=== PATIENT | male | born 2000 | race Caucasian/White ===

== ENCOUNTER 2021-06-23 05:08 | Emergency (ER) | payer MEDICAID ==
[~2021-06-23] VITALS: Ht 177.8 cm; Wt 65.9 kg
[2021-06-23 05:10] VITALS: BP 125/82
== END 2021-06-23 07:53 ==
LOC: ER 05:09
DX: F10.129 Alcohol abuse with intoxication, unspecified (principal); Z13.89 Encounter for screening for other disorder; Y90.9 Presence of alcohol in blood, level not specified
CPT/HCPCS: 99283

== ENCOUNTER 2022-10-17 09:56 | Emergency (ER) | payer MEDICAID ==
[~2022-10-17] VITALS: Ht 177.8 cm; Wt 68.2 kg
[2022-10-17 10:04] VITALS: BP 118/72
== END 2022-10-17 10:46 | disposition home or self-care (01) ==
LOC: ER 09:56
DX: S42.002A Fracture of unspecified part of left clavicle, initial encounter for closed fracture (principal); X58.XXXA Exposure to other specified factors, initial encounter; Y93.89 Activity, other specified; Y92.89 Other specified places as the place of occurrence of the external cause; Y99.8 Other external cause status
CPT/HCPCS: 73030; 99283